=== PATIENT | male | born 1970 | race African-American/Black ===

== ENCOUNTER 2018-07-08 07:44 | Emergency (ER) | payer SELFPAY ==
[~2018-07-08] VITALS: Ht 182.9 cm; Wt 139.7 kg
[2018-07-08] MEDS ORDERED: ALLOPURINOL100 M1 ORAL (07:52)
[2018-07-08 07:55] VITALS: BP 139/84
--- NOTE | 2018-07-08 07:55 | NUR ---
ED Nurse Note: pt walked in to ED due to pain on right upper chest that radiated to shoulder, upper arm and upper back for couple days. pt denies any recent injury or trauma. pt denies SOB. per pt, pain gets worse and better with movement. AAO x4. respirations even and non-labored noted. will wait for the further order.
--- NOTE | 2018-07-08 08:30 | Emergency Room Report ---
History of Present Illness General Chief Complaint: Pain Source: Patient Present Illness HPI Patient presents with complaints of right upper shoulder and chest pain Reports that when he raises his arm he feels the discomfort release however touching the upper lateral aspect of his chest causes increased pain Patient reports he has previous history of DVT and pulmonary embolism He is on Coumadin and Lovenox patient is here from [place] flew in 4 days ago Denies any pleurisy denies any shortness of breath Denies any back or flank pain denies any trauma Allergies: Coded Allergies: No Known Allergies (Unverified , 07/08/18) Patient History Past Medical History: see triage record Pertinent Family History: none Reviewed Nursing Documentation: PMH: Agreed; PSxH: Agreed Nursing Documentation-PMH Past Medical History: No Stated History Hx Cardiac Problems: Yes - PE, Gout Hx Diabetes: Yes - Pre diabetic Review of Systems All Other Systems: negative except mentioned in HPI Physical Exam Vital Signs Date Time Temp Pulse Resp B/P (MAP) Pulse Ox O2 Delivery O2 Flow Rate FiO2 07/08/18 07:46 98.8 84 18 139/84 97 07/08/18 07:55 Room Air Sp02 EP Interpretation: reviewed, normal General Appearance: well appearing, no apparent distress Head: normocephalic, atraumatic Eyes: bilateral eye PERRL, bilateral eye EOMI ENT: hearing grossly normal, normal pharynx, TMs + canals normal, uvula midline Neck: full range of motion, supple, no meningismus, no bony tend Respiratory: lungs clear, normal breath sounds, no rhonchi, no respiratory distress, no retraction, no accessory muscle use Cardiovascular #1: normal peripheral pulses, regular rate, rhythm, no edema, no gallop, no JVD, no murmur Gastrointestinal: normal bowel sounds, non tender, soft, no mass, no organomegaly, non-distended, no guarding, no hernia, no pulsatile mass, no rebound Genitourinary: no CVA tenderness Musculoskeletal: other - Palpating over the lateral upper pectoralis, just below the acromioclavicular joint as well, patient has reproducible pain, no change with supination or pronation of the arm Neurologic: oriented x3, responsive, ec teacher III-XII nml as tested, motor strength/ tone normal, sensory intact Psychiatric: mood/affect normal Skin: normal color, no rash, warm/dry, palpation normal Lymphatic: normal inspection, no adenopathy Medical Decision Making Diagnostic Impression: Primary Impression: Shoulder pain Additional Impression: Muscle strain ER Course Patient presents with significant musculoskeletal indications and findings However given his recent history and medications further extensive workup was initiated and consideration for pulmonary embolism other cardiac, cardiopulmonary etiology pursued Patient on cardiac monitoring remains heart rate of 60s EKG is normal Saturation remains appropriate Patient's INR is returned at 1.1 Patient reports that he had similar findings 3 weeks ago and has had change in medications, On repeat evaluation continues to deny any pleurisy Does not have any discomfort without touch or palpation There is no clinical signs of edema or swelling to suggest DVT in the upper extremity Patient again will contact his clinic by phone for further intervention at this time is continuing on Lovenox and Coumadin and will have initial conservative outpatient trial Labs Test 07/08/18 08:45 White Blood Count 6.1 K/UL (4.8-10.8) Red Blood Count 5.02 M/UL (4.70-6.10) Hemoglobin 15.0 G/DL (14.2-18.0) Hematocrit 44.7 % (42.0-52.0) Mean Corpuscular Volume 89 FL (80-99) Mean Corpuscular Hemoglobin 29.9 PG (27.0-31.0) Mean Corpuscular Hemoglobin Concent 33.5 G/DL (32.0-36.0) Red Cell Distribution Width 13.1 % (11.6-14.8) Platelet Count 284 K/UL (150-450) Mean Platelet Volume 6.3 FL (6.5-10.1) Neutrophils (%) (Auto) 49.6 % (45.0-75.0) Lymphocytes (%) (Auto) 37.4 % (20.0-45.0) Monocytes (%) (Auto) 8.8 % (1.0-10.0) Eosinophils (%) (Auto) 3.2 % (0.0-3.0) Basophils (%) (Auto) 1.1 % (0.0-2.0) Prothrombin Time 11.4 SEC (9.30-11.50) Prothromb Time International Ratio 1.1 (0.9-1.1) Activated Partial Thromboplast Time 23 SEC (23-33) Sodium Level 138 MMOL/L (136-145) Potassium Level 3.9 MMOL/L (3.5-5.1) Chloride Level 103 MMOL/L (98-107) Carbon Dioxide Level 27 MMOL/L (21-32) Anion Gap 8 mmol/L (5-15) Blood Urea Nitrogen 9 mg/dL (7-18) Creatinine 1.1 MG/DL (0.55-1.30) Estimat Glomerular Filtration Rate > 60 mL/min (>60) Glucose Level 114 MG/DL (74-106) Calcium Level 8.9 MG/DL (8.5-10.1) Total Bilirubin 0.4 MG/DL (0.2-1.0) Aspartate Amino Transf (AST/SGOT) 22 U/L (15-37) Alanine Aminotransferase (ALT/SGPT) 46 U/L (12-78) Alkaline Phosphatase 96 U/L (46-116) Total Creatine Kinase 175 U/L (26-308) Creatine Kinase MB < 0.5 NG/ML (0.0-3.6) Creatine Kinase MB Relative Index 0.2 Troponin I 0.000 ng/mL (0.000-0.056) Total Protein 7.7 G/DL (6.4-8.2) Albumin 3.7 G/DL (3.4-5.0) Globulin 4.0 g/dL Albumin/Globulin Ratio 0.9 (1.0-2.7) Lipase 242 U/L (73-393) EKG Diagnostic Results Rate: normal Rhythm: NSR ST Segments: no acute changes Rhythm Strip Diag. Results EP Interpretation: yes Rate: 66 Rhythm: NSR, no PVC's, no ectopy Chest X-Ray Diagnostic Results Chest X-Ray Diagnostic Results : Chest X-Ray Ordered: Yes # of Views/Limited/Complete: 1 View Indication: Chest Pain EP Interpretation: Yes Interpretation: no consolidation, no effusion, no pneumothorax Impression: No acute disease Electronically Signed by: Lexy Beltre DO Last Vital Signs Date Time Temp Pulse Resp B/P (MAP) Pulse Ox O2 Delivery O2 Flow Rate FiO2 07/08/18 07:55 98.8 84 18 139/84 97 Room Air Status: improved Disposition: HOME, SELF-CARE Condition: Improved Scripts Methocarbamol* (ROBAXIN-750*) 750 Mg Tablet 750 MG PO TID, #21 TAB 0 Refills Prov: Lexy Beltre DO 07/08/18 Additional Instructions: Patient is provided with the discharge instructions notified to follow up with primary doctor in the next 2-3 days otherwise return to the er with any worsening symptoms. Please note that this report is being documented using [employer] technology. This can lead to erroneous entry secondary to incorrect interpretation by the dictating instrument. Lexy Beltre DO Jul 08, 2018 08:30
--- NOTE | 2018-07-08 08:31 | NUR ---
HAND-OFF: Report given to Jayson Jason RN. endorsed pending lab draw.
[2018-07-08 08:57] VITALS: BP 109/59
--- NOTE | 2018-07-08 08:59 | NUR ---
ED Nurse Note: pt present at ER c/o Rt side of chest pain currently 8/10 and radiates to Rt arm and shoulder. pt reported that he has not experiences before. pt aao x4 and cooperative. skin warm and intact.
[2018-07-08 09:00] LABS: BASOPHILS % (AUTO) 1.1 % (0.0-2.0); EOSINOPHILS % (AUTO) 3.2 % (0.0-3.0); HEMATOCRIT 44.7 % (42.0-52.0); LYMPHOCYTES % (AUTO) 37.4 % (20.0-45.0); MEAN CORPUSCULAR VOLUME 89 FL (80-99); MONOCYTES % (AUTO) 8.8 % (1.0-10.0); NEUTROPHILS % (AUTO) 49.6 % (45.0-75.0); PLATELET COUNT 284 K/UL (150-450); RED BLOOD COUNT 5.02 M/UL (4.70-6.10); RED CELL DISTRIBUTION WIDTH 13.1 % (11.6-14.8); WHITE BLOOD COUNT 6.1 K/UL (4.8-10.8)
[2018-07-08 09:05] LABS: INR 1.1 (0.9-1.1)
[2018-07-08 09:18] LABS: ANION GAP 8 mmol/L (5-15); BLOOD UREA NITROGEN 9 mg/dL (7-18); CALCIUM 8.9 MG/DL (8.5-10.1); CARBON DIOXIDE 27 MMOL/L (21-32); CHLORIDE 103 MMOL/L (98-107); CREATININE 1.1 MG/DL (0.55-1.30); POTASSIUM 3.9 MMOL/L (3.5-5.1); SODIUM 138 MMOL/L (136-145)
[2018-07-08 09:32] LABS: ALANINE AMINOTRANSFERASE 46 U/L (12-78); ALBUMIN 3.7 G/DL (3.4-5.0); ALBUMIN/GLOBULIN RATIO 0.9 (1.0-2.7); ALKALINE PHOSPHATASE 96 U/L (46-116); ASPARTATE AMINO TRANSFERASE 22 U/L (15-37); BILIRUBIN,TOTAL 0.4 MG/DL (0.2-1.0); CKMB < 0.5 NG/ML (0.0-3.6); CREATINE KINASE 175 U/L (26-308)
[2018-07-08 09:43] VITALS: BP 114/69
--- NOTE | 2018-07-08 10:19 | NUR ---
ED Nurse Note: BRENNEN spoke to the pt regarding the test results came out negative for heartattack. pt verbalized understanding.
[2018-07-08] MEDS ORDERED: ROBAXIN-750750 MG PO (10:21)
[2018-07-08 10:27] VITALS: BP 114/69
--- NOTE | 2018-07-08 10:28 | NUR ---
ED Nurse Note: Pt was cleared to be discharged by ERMD. Pt received prescription and discharge instruction and verbalized understanding. Id band removed and pt ambulated to be discharged.
--- NOTE | 2018-07-08 10:56 | Diagnostic Imaging Report ---
Indication: Chest pain Comparison: None A single view chest radiograph was obtained. Findings: Cardiomediastinal appearance is within normal limits for age. The lungs are clear. Pulmonary vascularity is appropriate. The diaphragmatic contour is smooth and costophrenic angles are sharp. No pleural effusions are identified. The bones are unremarkable. Impression: No acute findings
--- NOTE | 2018-07-11 13:13 | Cardiology Report ---
APPROVED REPORT EKG Measurement Heart [id number] Sinus rhythm with premature supraventricular complexes Otherwise normal ECG
== END 2018-07-08 10:27 | disposition home or self-care (01) ==
LOC: EMR 08:15
DX: S46.911A Strain of unspecified muscle, fascia and tendon at shoulder and upper arm level, right arm, initial encounter (principal); X58.XXXA Exposure to other specified factors, initial encounter; Y92.89 Other specified places as the place of occurrence of the external cause; R73.03 Prediabetes; R07.9 Chest pain, unspecified; Z79.01 Long term (current) use of anticoagulants; Z86.711 Personal history of pulmonary embolism
CPT/HCPCS: 36415; 71045; 80053; 82550; 82553; 83690; 84484; 85025; 85610; 85730; 93005; 99284